=== PATIENT | female | born 1940 | race Caucasian/White ===

== ENCOUNTER 2017-03-16 16:15 | Emergency (ER) | payer OTHER ==
[2017-03-16 16:24] VITALS: RESP 16; TEMP 97.7
--- NOTE | 2017-03-16 16:29 | EDPHY ---
H & P Stated Complaint: FR hip pain from fall HPI/ROS: Chief Complaint: Right hip pain status post fall HPI: 76-year-old woman with a history of atrial fibrillation started taking the digoxin today. Patient became dizzy and had a mechanical fall onto her right hip and also struck the back of her head. She is not currently on any anticoagulation. She did not have a loss of consciousness. She has had persistent right hip pain he and is unable to stand or put any weight on it. No numbness or weakness. No prior history of syncope or falls. No chest pain or shortness of breath. No palpitations. ROS: 10 point Review of Systems is negative except as noted in the HPI. PMH: Atrial fibrillation Social History: No smoking, no alcohol, no recreational drug use Family History: non-contributory Physical Exam: Gen: Awake, Alert, No Distress HEENT: Nose: no rhinorrhea Eyes: PERRLA, EOMI Mouth: Moist mucosa Neck: Supple, no JVD Chest: nontender, lungs clear to auscultation Heart: S1, S2 normal, no murmur Abd: Soft, non-tender, no guarding Back: no CVA tenderness, no midline tenderness Ext: no edema, right leg is shortened. She has tenderness over the right hip. 2+ DP pulses, capillary refills less than 3 seconds. Sensations intact in all dermatomes. Skin: no rash Neuro: CN II-XII intact, Sensation grossly intact, Strength 5/5 in bilateral upper and lower extremities - Personal History Current Tetanus/Diphtheria Vaccine: Yes Current Tetanus Diphtheria and Acellular Pertussis (TDAP): Yes - Medical/Surgical History Hx Asthma: No Hx Chronic Respiratory Disease: No Hx Diabetes: No Hx Cardiac Disease: Yes Hx Renal Disease: No Hx Cirrhosis: No Hx Alcoholism: No Hx HIV/AIDS: No Hx Splenectomy or Spleen Trauma: No Other PMH: colon CA, A-fib rapid, gout, PNE - Social History Smoking Status: Never smoked Constitutional: Initial Vital Signs Temperature (C) 36.5 C 03/16/17 16:18 Heart Rate 71 03/16/17 16:18 Respiratory Rate 16 03/16/17 16:18 Blood Pressure 140/84 H 03/16/17 16:18 O2 Sat (%) 95 03/16/17 16:18 O2 Delivery Mode Room Air Allergies/Adverse Reactions: Penicillins Allergy (Verified 03/16/17 16:27) Sulfa (Sulfonamide Antibiotics) Allergy (Verified 03/16/17 16:27) Medical Decision Making - Diagnostics Imaging Results: Imaging Impressions Hip X-Ray 03/16/17 16:24 Impression: Transverse mid right femoral neck fracture with moderate angulation. Imaging: I viewed and interpreted images myself Procedures: Procedure note: Femoral nerve block Indication: Right femoral neck fracture. Patient was prepped with chlorhexidine prep. She was draped with a sterile drape. Under ultrasound guidance with sterile technique an 18 gauge spinal needle was introduced in the region of the femoral nerve. A total of 20 cc of 0.5% bupivacaine was infiltrated around the femoral nerve. This was visualized in the appropriate region on ultrasound. The needle was removed and a sterile dressing was placed. Ultrasound images were saved to the hard drive. There were no complications. Procedure was performed by me. ED Course/Re-evaluation: Patient is improved after femoral nerve block. I have discussed with [facility]. Patient is be accepted in transfer to [facility] by Dr. Fishman. I have completed the EMTALA. - Data Points Laboratory Results: Laboratory Results 03/16/17 17:00 03/16/17 17:00 03/16/17 03/16/17 17:00 17:00 WBC 5.64 10^3/uL 10^3/uL (3.80-9.50) RBC 4.32 10^6/uL 10^6/uL (4.18-5.33) Hgb 12.0 g/dL L g/dL (12.6-16.3) Hct 37.4 % L % (38.0-47.0) MCV 86.6 fL fL (81.5-99.8) MCH 27.8 pg L pg (27.9-34.1) MCHC 32.1 g/dL L g/dL (32.4-36.7) RDW 16.3 % H % (11.5-15.2) Plt Count 258 10^3/uL 10^3/uL (150-400) MPV 10.3 fL fL (8.7-11.7) Neut % (Auto) Not Reported Lymph % (Auto) Not Reported Bullock % (Auto) Not Reported Eos % (Auto) Not Reported Baso % (Auto) Not Reported Nucleat RBC Rel Count 0.0 % % (0.0-0.2) Absolute Neuts (auto) Not Reported Absolute Lymphs (auto) Not Reported Absolute Monos (auto) Not Reported Absolute Eos (auto) Not Reported Absolute Basos (auto) Not Reported Absolute Nucleated RBC 0.00 10^3/uL 10^3/uL (0-0.01) Immature Gran % Not Reported Immature Gran # Not Reported Platelet Estimate Pending Sodium 135 mEq/L mEq/L (134-144) Potassium 4.2 mEq/L mEq/L (3.5-5.2) Chloride 100 mEq/L mEq/L (97-110) Carbon Dioxide 25 mEq/l mEq/l (22-31) Anion Gap 10 mEq/L mEq/L (8-16) BUN 18 mg/dL mg/dL (7-23) Creatinine 0.8 mg/dL mg/dL (0.6-1.0) Estimated GFR > 60 Glucose 79 mg/dL mg/dL (70-100) Calcium 9.3 mg/dL mg/dL (8.5-10.4) Departure - Departure Disposition: Acute [facility] Condition: Fair Instructions: Hip Fracture (ED) Referrals: Patient,NotPresent [Unknown] - As per Instructions
--- NOTE | 2017-03-16 16:31 | CPEKG ---
Heart Rate: 105 RR Interval: 571 QRSD Interval: 80 QT Interval: 348 QTC Interval: 461 QRS Eldridge: -5 T Wave Eldridge: -53 EKG Severity - ABNORMAL ECG - EKG Impression: ATRIAL FIBRILLATION, V-RATE 82-134 EKG Impression: CONSIDER ANTERIOR INFARCT EKG Impression: NONSPECIFIC T ABNORMALITIES, LATERAL LEADS Electronically Signed By: Brady Rizo 16-Mar-2017 20:55:15
[2017-03-16 17:46] VITALS: BP 140/73; PULSE 65; O2SAT 93
[2017-03-16 17:47] LABS: ADD DIFF? YES; ADD MORPH? NO; ADD SCAN? NO; ATYPICAL LYMPHOCYTE FLAG 0 (0-99); FRAGMENT RBC FLAG 0 (0-99); HEMATOCRIT 37.4 % (38.0-47.0); LEFT SHIFT FLG 10 (0-99); LIPEMIA HEMOLYSIS FLAG 80 (0-99); MEAN CELL HEMOGLOBIN 27.8 pg (27.9-34.1); MEAN CELL HEMOGLOBIN CONCENTR. 32.1 g/dL (32.4-36.7); MEAN CELL VOLUME 86.6 fL (81.5-99.8); MEAN PLATELET VOLUME 10.3 fL (8.7-11.7); PLATELET CLUMPS FLAG 0 (0-99); PLATELET COUNT 258 10^3/uL (150-400); RED BLOOD CELL COUNT 4.32 10^6/uL (4.18-5.33); RED CELL DISTRIBUTION WIDTH 16.3 % (11.5-15.2)
[2017-03-16 17:55] LABS: ANION GAP 10 mEq/L (8-16); CALCIUM 9.3 mg/dL (8.5-10.4); CARBON DIOXIDE 25 mEq/l (22-31); CHLORIDE 100 mEq/L (97-110); CREATININE 0.8 mg/dL (0.6-1.0); GLOMERULAR FILTRATION RATE > 60; GLUCOSE 79 mg/dL (70-100); POTASSIUM 4.2 mEq/L (3.5-5.2); SODIUM 135 mEq/L (134-144)
[2017-03-16 18:28] LABS: ACANTHOCYTES 1+; PLATELET ESTIMATE ADEQUATE (ADEQ); POLYCHROMASIA 1+
== END 2017-03-16 19:36 | disposition short-term general hospital (02) ==
DX: S72.001A Fracture of unspecified part of neck of right femur, initial encounter for closed fracture (principal); Z85.038 Personal history of other malignant neoplasm of large intestine; W01.198A Fall on same level from slipping, tripping and stumbling with subsequent striking against other object, initial encounter